=== PATIENT | male | born 1945 | race Caucasian/White ===

== ENCOUNTER 2019-11-05 10:31 | Outpatient (CLI) | payer OTHER, SELFPAY ==
[2019-11-05 10:42] LABS: Basophils Absolute Auto 0.08 K/mm3 (0.00-0.10); Basophils Percent Auto 1.4 % (0.0-1.0); Eosinophils Absolute Auto 0.22 K/mm3 (0.02-0.50); Eosinophils Percent Auto 3.7 % (1.0-6.0); Hematocrit 43.9 % (37.0-46.0); Hemoglobin 13.9 g/dL (12.4-15.3); Immature Granulocyte Absolute 0.02 K/mm3 (0.00-0.00); Immature Granulocyte Percent A 0.3 % (0.0-0.0); Lymphocytes Absolute Auto 1.14 K/mm3 (1.10-4.50); Lymphocytes Percent Auto 19.4 % (18.0-42.0); Mean Corpuscular HGB Conc 31.7 g/dL (32.0-36.0); Mean Corpuscular Hemoglobin 26.2 pg (27.0-31.0); Mean Corpuscular Volume 82.8 fL (78.0-102.0); Mean Platelet Volume 9.6 fl (8.7-11.0); Monocytes Absolute Auto 0.43 K/mm3 (0.10-0.90); Monocytes Percent Auto 7.3 % (2.0-11.0); Neutrophils Percent Auto 67.9 % (50.0-70.0); Platelet Count Result 317 K/mm3 (150-420); Red Cell Distribution Width 20.7 % (11.6-14.4); White Blood Count 5.9 K/mm3 (4.8-10.8)
[2019-11-05 10:57] LABS: Add Urine Microscopic? YES; Appearance Urine Clear (Clear); Bilirubin Urine Negative (Negative); Blood Urine Negative (Negative); Color Urine Amber (Yellow); Glucose Urine UA Negative (Negative); Ketones Urine Trace (Negative); Leukocyte Esterase Ur Negative LEU/UL (Negative); Nitrate Urine Negative (Negative); Protein Urine Trace (Negative)
[2019-11-05 11:03] LABS: Bacteria Urine Trace /hpf; Mucus Urine Moderate /lpf; RBC Urine None seen /hpf (0-2); Renal Epithelial Cells Urine Rare /hpf; Squamous Epithelial Cell Urine Rare /hpf (Few); WBC Urine None seen /hpf (0-3)
[2019-11-05 11:34] LABS: Alanine Aminotransferase 25 U/L (16-63); Albumin Level 3.8 g/dL (3.4-5.0); Alkaline Phosphatase 72 U/L (46-116); Anion Gap 13.4 mmol/L (7-16); Aspartate Amino Transferase 25 U/L (15-37); Bilirubin,Total 0.4 mg/dL (0.00-1.00); Blood Urea Nitrogen 21 mg/dL (7-18); Calcium 8.8 mg/dL (8.5-10.1); Carbon Dioxide 28 mmol/L (21-32); Chloride 105 mmol/L (98-108); Cholesterol 198 mg/dL (0-200); Creatine Kinase 118 U/L (39-308); Estimated Glomerular Filt Rate > 60; Glucose 89 mg/dL (70-99); HDL Direct 71 mg/dL (40-60); LDL Cholesterol Calculated 101 mg/dL (<130); Osmolality Calculated 296 mOsm/kg (285-295); Potassium 4.4 mmol/L (3.5-5.1); Sodium 142 mmol/L (136-145); Total Protein 6.6 g/dL (6.4-8.2); Triglycerides 130 mg/dL (0-150)
== END 2019-11-05 10:32 | disposition home or self-care (01) ==
PROVIDERS: PCP Internal Medicine; Visit Provider Internal Medicine
DX: E78.5 Hyperlipidemia, unspecified (principal); I10 Essential (primary) hypertension; D45 Polycythemia vera
CPT/HCPCS: 36415; 80053; 80061; 81001; 82550; 85025

== ENCOUNTER 2020-04-30 07:25 | Outpatient (CLI) | payer OTHER, SELFPAY ==
[2020-04-30 07:38] LABS: Add Urine Microscopic? YES; Appearance Urine Clear (Clear); Basophils Absolute Auto 0.05 K/mm3 (0.00-0.10); Bilirubin Urine Negative (Negative); Blood Urine Negative (Negative); Color Urine Yellow (Yellow); Eosinophils Absolute Auto 0.23 K/mm3 (0.02-0.50); Eosinophils Percent Auto 4.8 % (1.0-6.0); Glucose Urine UA Negative (Negative); Hematocrit 45.3 % (37.0-46.0); Hemoglobin 14.3 g/dL (12.4-15.3); Immature Granulocyte Absolute 0.02 K/mm3 (0.00-0.00); Immature Granulocyte Percent A 0.4 % (0.0-0.0); Ketones Urine Trace (Negative); Leukocyte Esterase Ur Negative (Negative); Lymphocytes Absolute Auto 0.89 K/mm3 (1.10-4.50); Lymphocytes Percent Auto 18.7 % (18.0-42.0); Mean Corpuscular HGB Conc 31.6 g/dL (32.0-36.0); Mean Corpuscular Hemoglobin 29.1 pg (27.0-31.0); Mean Corpuscular Volume 92.1 fL (78.0-102.0); Mean Platelet Volume 9.2 fl (8.7-11.0); Monocytes Absolute Auto 0.41 K/mm3 (0.10-0.90); Monocytes Percent Auto 8.6 % (2.0-11.0); Neutrophils Absolute Auto 3.2 K/mm3 (1.7-7.2); Neutrophils Percent Auto 66.5 % (50.0-70.0); Nitrate Urine Negative (Negative); Platelet Count Result 381 K/mm3 (150-420); Protein Urine Negative (Negative); Red Blood Count 4.92 M/mm3 (4.70-6.10); Red Cell Distribution Width 13.3 % (11.6-14.4); Specific Grav Ur 1.015 (1.010-1.020); Urobilinogen Urine 0.2 mg/dL (0.2-1.0); White Blood Count 4.8 K/mm3 (4.8-10.8)
[2020-04-30 07:43] LABS: RBC Urine 0-2 /hpf (0-2); Squamous Epithelial Cell Urine None seen /hpf (Few); WBC Urine 0-3 /hpf (0-3)
[2020-04-30 07:44] LABS: Bacteria Urine Trace /hpf; Mucus Urine Heavy /lpf
[2020-04-30 08:36] LABS: Alanine Aminotransferase 19 U/L (16-63); Alkaline Phosphatase 62 U/L (46-116); Anion Gap 7 mmol/L (8-16); Aspartate Amino Transferase 14 U/L (15-37); Bilirubin,Total 0.6 mg/dL (0.00-1.00); Blood Urea Nitrogen 15 mg/dL (7-18); Calcium 9.1 mg/dL (8.5-10.1); Carbon Dioxide 30 mmol/L (21-32); Chloride 107 mmol/L (98-108); Cholesterol 212 mg/dL (0-200); Creatine Kinase 74 U/L (39-308); Estimated Glomerular Filt Rate > 60; Ferritin 10 ng/mL (26-388); Glucose 85 mg/dL (70-99); HDL Direct 61 mg/dL (40-60); Iron 90 ug/dL (65-175); LDL Cholesterol Calculated 122 mg/dL (<130); Osmolality Calculated 297 mOsm/kg (285-295); Percent Iron Saturation 21 % (12-57); Potassium 4.7 mmol/L (3.5-5.1); Sodium 144 mmol/L (136-145); Triglycerides 144 mg/dL (0-150)
== END 2020-04-30 07:26 | disposition home or self-care (01) ==
LOC: CHSLAB 07:27
PROVIDERS: PCP Internal Medicine; Visit Provider Internal Medicine
DX: E78.2 Mixed hyperlipidemia (principal); I10 Essential (primary) hypertension; K21.9 Gastro-esophageal reflux disease without esophagitis; D45 Polycythemia vera
CPT/HCPCS: 36415; 80053; 80061; 81001; 82550; 82728; 83540; 83550; 85025

== ENCOUNTER 2020-05-19 12:49 | Outpatient (CLI) | payer OTHER, SELFPAY ==
[2020-05-19 13:08] LABS: Basophils Absolute Auto 0.1 K/mm3 (0.0-0.1); Basophils Percent Auto 0.8 % (0.2-1.2); Eosinophils Absolute Auto 0.2 K/mm3 (0-0.3); Eosinophils Percent Auto 3.5 % (0-4.4); Hematocrit 46.8 % (42.0-52.0); Hemoglobin 14.7 g/dL (14.0-18.0); Immature Granulocyte Absolute 0.02 K/mm3 (0.00-0.031); Immature Granulocyte Percent A 0.3 % (0-0.5); Lymphocytes Absolute Auto 1.24 K/mm3 (0.9-3.2); Lymphocytes Percent Auto 19.7 % (18.3-44.2); Mean Corpuscular HGB Conc 31.4 g/dl (32-36); Mean Corpuscular Hemoglobin 28.1 pg (26-34); Mean Corpuscular Volume 89.5 fl (80-100); Mean Platelet Volume 9.7 fl (7.4-10.4); Monocytes Absolute Auto 0.5 K/mm3 (0.1-0.6); Monocytes Percent Auto 7.2 % (2.6-8.5); Neutrophils Absolute Auto 4.3 K/mm3 (1.3-6.7); Neutrophils Percent Auto 68.5 % (45.5-73.1); Platelet Count Result 311 k/mm3 (150-375); Red Blood Count 5.23 M/mm3 (4.6-6.20); Red Cell Distribution Width 13.5 % (11.5-14.5); White Blood Count 6.3 K/mm3 (4.5-10.0)
[2020-05-19 13:11] LABS: Blood Urea Nitrogen 19 mg/dL (8-26); Carbon Dioxide 31 mmol/L (22-30); Chloride 101 mmol/L (98-109); Estimated Glomerular Filt Rate > 60; Glucose 88 mg/dL (70-105); Sodium 141 mmol/L (138-146)
[2020-05-19 17:18] LABS: Alanine Aminotransferase 21 U/L (4-50); Albumin Level 4.7 g/dL (3.5-5.1); Alkaline Phosphatase 68 U/L (38-126); Anion Gap 11 mmol/L (8-16); Aspartate Amino Transferase 36 U/L (17-59); Bilirubin,Total 0.7 mg/dL (0.2-1.3); Blood Urea Nitrogen 18 mg/dL (9-20); Calcium 9.9 mg/dL (8.4-10.2); Carbon Dioxide 31 mmol/L (22-30); Chloride 99 mmol/L (98-107); Estimated Glomerular Filt Rate > 60; Glucose 92 mg/dL (75-110); Potassium 4.3 mmol/L (3.4-5.0); Sodium 141 mmol/L (137-145)
== END 2020-05-19 12:50 | disposition home or self-care (01) ==
LOC: ANHLAB 12:51
PROVIDERS: PCP Internal Medicine; Visit Provider Internal Medicine Hematology & Oncology
DX: D45 Polycythemia vera (principal)
CPT/HCPCS: 36415; 80048; 80053; 85025

== ENCOUNTER 2020-10-27 07:16 | Outpatient (CLI) | payer OTHER, SELFPAY ==
[2020-10-27 07:28] LABS: Appearance Urine Clear (Clear); Basophils Absolute Auto 0.07 K/mm3 (0.00-0.10); Basophils Percent Auto 1.5 % (0.0-1.0); Bilirubin Urine Negative (Negative); Blood Urine Negative (Negative); Eosinophils Absolute Auto 0.19 K/mm3 (0.02-0.50); Eosinophils Percent Auto 4.1 % (1.0-6.0); Glucose Urine UA Negative (Negative); Hematocrit 42.2 % (37.0-46.0); Hemoglobin 13.3 g/dL (12.4-15.3); Immature Granulocyte Absolute 0.01 K/mm3 (0.00-0.00); Immature Granulocyte Percent A 0.2 % (0.0-0.0); Ketones Urine Trace (Negative); Leukocyte Esterase Ur Negative (Negative); Lymphocytes Absolute Auto 0.77 K/mm3 (1.10-4.50); Lymphocytes Percent Auto 16.6 % (18.0-42.0); Mean Corpuscular HGB Conc 31.5 g/dL (32.0-36.0); Mean Corpuscular Hemoglobin 25.2 pg (27.0-31.0); Mean Corpuscular Volume 80.1 fL (78.0-102.0); Mean Platelet Volume 9.1 fl (8.7-11.0); Monocytes Percent Auto 8.6 % (2.0-11.0); Neutrophils Absolute Auto 3.2 K/mm3 (1.7-7.2); Nitrate Urine Negative (Negative); Platelet Count Result 400 K/mm3 (150-420); Protein Urine Negative (Negative); Red Blood Count 5.27 M/mm3 (4.70-6.10); Red Cell Distribution Width 16.6 % (11.6-14.4); Urobilinogen Urine 0.2 mg/dL (0.2-1.0); White Blood Count 4.6 K/mm3 (4.8-10.8); pH Urine 5.5 (5.0-8.0)
[2020-10-27 07:41] LABS: Add Urine Microscopic? YES; Color Urine Dark Orange (Yellow)
[2020-10-27 07:42] LABS: Bacteria Urine Trace /hpf; Mucus Urine Few /lpf; RBC Urine None seen /hpf (0-2); WBC Urine None seen /hpf (0-3)
[2020-10-27 08:20] LABS: Alanine Aminotransferase 24 U/L (16-63); Albumin Level 4.1 g/dL (3.4-5.0); Alkaline Phosphatase 68 U/L (46-116); Anion Gap 11 mmol/L (8-16); Aspartate Amino Transferase 17 U/L (15-37); Bilirubin,Total 0.7 mg/dL (0.00-1.00); Blood Urea Nitrogen 24 mg/dL (7-18); Calcium 8.9 mg/dL (8.5-10.1); Carbon Dioxide 27 mmol/L (21-32); Chloride 104 mmol/L (98-108); Cholesterol 183 mg/dL (0-200); Creatine Kinase 112 U/L (39-308); Estimated Glomerular Filt Rate 52; Ferritin 12 ng/mL (26-388); Glucose 93 mg/dL (70-99); HDL Direct 61 mg/dL (40-60); Iron 45 ug/dL (65-175); LDL Cholesterol Calculated 100 mg/dL (<130); Osmolality Calculated 298 mOsm/kg (285-295); Percent Iron Saturation 10 % (12-57); Potassium 4.7 mmol/L (3.5-5.1); Sodium 142 mmol/L (136-145); Triglycerides 111 mg/dL (0-150)
== END 2020-10-27 07:17 | disposition home or self-care (01) ==
LOC: CHSLAB 07:18
PROVIDERS: PCP Internal Medicine; Visit Provider Internal Medicine
DX: K21.9 Gastro-esophageal reflux disease without esophagitis (principal); I10 Essential (primary) hypertension; E78.2 Mixed hyperlipidemia; D45 Polycythemia vera
CPT/HCPCS: 36415; 80053; 80061; 81001; 82550; 82728; 83540; 83550; 85025

== ENCOUNTER 2020-12-03 07:27 | Outpatient (CLI) | payer OTHER, SELFPAY ==
[2020-12-03 09:13] LABS: Alanine Aminotransferase 27 U/L (16-63); Albumin Level 3.8 g/dL (3.4-5.0); Alkaline Phosphatase 76 U/L (46-116); Anion Gap 11 mmol/L (8-16); Aspartate Amino Transferase 20 U/L (15-37); Bilirubin,Total 0.4 mg/dL (0.00-1.00); Blood Urea Nitrogen 19 mg/dL (7-18); Calcium 9.2 mg/dL (8.5-10.1); Carbon Dioxide 27 mmol/L (21-32); Chloride 106 mmol/L (98-108); Estimated Glomerular Filt Rate > 60; Glucose 79 mg/dL (70-99); Osmolality Calculated 299 mOsm/kg (285-295); Sodium 144 mmol/L (136-145); Total Protein 6.8 g/dL (6.4-8.2)
== END 2020-12-03 07:28 | disposition home or self-care (01) ==
LOC: CHSLAB 07:29
PROVIDERS: PCP Internal Medicine; Visit Provider Internal Medicine
DX: E86.0 Dehydration (principal)
CPT/HCPCS: 36415; 80053

== ENCOUNTER 2021-02-02 00:33 | Day surgery (SDC) | payer OTHER, SELFPAY ==
[2021-01-20 15:38] VITALS: BMI 26.9
[2021-02-02 08:32] VITALS: BP 152/80; PULSE 59; RESP 15; TEMP 36; O2SAT 98; BMI 26.9
[2021-02-02] MEDS: LACTATED RINGERS 1,000 ML 150 ML IV CONT (08:36)
--- NOTE | 2021-02-02 09:08 | WPDANESEPPF ---
Anes - Initial Pre Proc Eval Procedure: Operation Date: 02/02/21 10:00 Proposed Procedures p Screening Colonoscopy - Heath Castellanos MD Date/Time: 02/02/21 09:08 Surgeon: Heath Castellanos MD Pre Op Diagnosis: hx of colon polyps Z86.010 Patient Data Age: 75 Gender: M Height: 1.88 m Weight: 95.1 kg Last Vital Signs Temp 96.8 F L 02/02/21 08:32 Pulse 59 L 02/02/21 08:32 Resp 15 02/02/21 08:32 BP 152/80 H 02/02/21 08:32 Pulse Ox 98 02/02/21 08:32 Allergies Allergy/AdvReac Type Severity Reaction Status Date / Time No Known Allergies Allergy Verified 02/02/21 08:30 Home Medications Medication Instructions Recorded Confirmed Type losartan 25 mg PO DAILY 07/17/19 02/02/21 History pravastatin 10 mg PO DAILY 07/17/19 02/02/21 History acetaminophen [Acetaminophen Extra 500 mg PO QID PRN 07/31/19 02/02/21 History Strength] aspirin [Aspir-81] 81 mg PO DAILY 07/31/19 02/02/21 History cetirizine [Zyrtec] 10 mg PO DAILY 07/31/19 02/02/21 History docosahexaenoic acid-epa [Fish Oil] 2 cap PO DAILY 07/31/19 02/02/21 History garlic 2,000 mg PO DAILY 07/31/19 02/02/21 History glucosamine-chondroitin [Osteo 2 tablet PO BID 07/31/19 02/02/21 History Bi-Flex] hwuabaofnuho-yydg-bftga acid 1 tablet PO DAILY 07/31/19 02/02/21 History [Centrum Complete] omeprazole-sodium bicarbonate 1 cap PO DAILY 07/31/19 02/02/21 History [Zegerid] saw palmetto 1,000 mg PO BID 07/31/19 02/02/21 History tramadol 50 mg PO Q8H PRN 07/31/19 02/02/21 History vit A,C and N-eknbco-nrtizmju 1 tablet PO DAILY 07/31/19 02/02/21 History [Ocuvite with Lutein] hydroxyurea 500 mg PO EVERY OTHER DAY 01/20/21 02/02/21 History Patient hx anesthesia problems: none Family hx anesthesia problems: none PMF Social History Social History Smoking packs per day: 1 Smoking cigarettes per day: 20.0 Years smoked: 20 Smoking pack-years: 20.00 Smoking status: Former smoker Tobacco type: cigarettes Smoking end date: 07/17/19 Alcohol intake: current Alcohol use details: 2x monthly Living arrangements: alone Gender identity (if verbalized by the patient): Male Spiritual care concerns: No Anes - Eval Final PreProcedure Day of Procedure 02/02/21 09:08 Patient weight: overweight Heart: regular rate and rhythm Lungs: clear to auscultation Airway: Mallampati scale class II Neurological: alert and oriented Last oral intake: >/= 8 hours ASA classification: III Emergent: no Anesthetic plan: proceed Anesthesia type and monitoring: general GIVS and standard monitoring Informed Consent: The patient's anesthetic plan and its attendant risks and benefits were discussed with the patient/family/POA. Questions were solicited and answers provided to the satisfaction of the patient/family/POA.
--- NOTE | 2021-02-02 09:45 | PM.HPGS ---
History of Present Illness History of Present Illness Consent: Risks, benefits, and alternatives have been discussed and questions answered. Patient agrees to proceed with procedure. Chief complaint: hx of colon polyps Z86.010 Narrative: Tino Carroll Jr. is a 75 year old male with last colonoscopy 2010 Review of Systems Constitutional: Constitutional: Denies headache(s) and Denies weakness Eyes: Eyes: Denies blurry vision ENT: Reports Normal hearing present, Denies headache(s) and Denies neck pain Cardiovascular: Cardiovascular: Denies chest pain and Denies dyspnea Respiratory: Respiratory: Denies dyspnea Gastrointestinal: Gastrointestinal: Reports no additional gastrointestinal complaints Genitourinary: Genitourinary: Denies dysuria Musculoskeletal: Musculoskeletal: Denies neck pain Integumentary/Breasts: Skin/Breast: Denies dry skin Neurologic: Reports Normal hearing present, Denies headache(s) and Denies weakness Psychiatric: Psychiatric: Denies anxiety Endocrine: Endocrine: Denies change in body appearance Hematologic/Lymphatic: Hematologic/Lymphatic: Denies easy bleeding Allergic/Immunologic: Allergic/Immunologic: Denies urticaria PMF Past Medical History Medical History (Updated 02/02/21 @ 09:45 by Heath Castellanos MD) Colon cancer screening Social History Social History Smoking packs per day: 1 Smoking cigarettes per day: 20.0 Years smoked: 20 Smoking pack-years: 20.00 Smoking status: Former smoker Tobacco type: cigarettes Smoking end date: 07/17/19 Alcohol intake: current Alcohol use details: 2x monthly Living arrangements: alone Gender identity (if verbalized by the patient): Male Spiritual care concerns: No Meds Home Medications and Allergies Home Medications Medication Instructions Recorded Confirmed Type losartan 25 mg PO DAILY 07/17/19 02/02/21 History pravastatin 10 mg PO DAILY 07/17/19 02/02/21 History acetaminophen [Acetaminophen Extra 500 mg PO QID PRN 07/31/19 02/02/21 History Strength] aspirin [Aspir-81] 81 mg PO DAILY 07/31/19 02/02/21 History cetirizine [Zyrtec] 10 mg PO DAILY 07/31/19 02/02/21 History docosahexaenoic acid-epa [Fish Oil] 2 cap PO DAILY 07/31/19 02/02/21 History garlic 2,000 mg PO DAILY 07/31/19 02/02/21 History glucosamine-chondroitin [Osteo 2 tablet PO BID 07/31/19 02/02/21 History Bi-Flex] awijsqnisjmv-eofw-rxiiw acid 1 tablet PO DAILY 07/31/19 02/02/21 History [Centrum Complete] omeprazole-sodium bicarbonate 1 cap PO DAILY 07/31/19 02/02/21 History [Zegerid] saw palmetto 1,000 mg PO BID 07/31/19 02/02/21 History tramadol 50 mg PO Q8H PRN 07/31/19 02/02/21 History vit A,C and V-wlhtix-uhwytfzc 1 tablet PO DAILY 07/31/19 02/02/21 History [Ocuvite with Lutein] hydroxyurea 500 mg PO EVERY OTHER DAY 01/20/21 02/02/21 History Allergies Allergy/AdvReac Type Severity Reaction Status Date / Time No Known Allergies Allergy Verified 02/02/21 08:30 Vital Signs Vital Signs - 24 hr 02/02/21 08:32 Temperature 96.8 F L Pulse Rate 59 L Respiratory Rate 15 Blood Pressure 152/80 H Pulse Oximetry 98 Exam Const: General: comfortable and no acute distress HENMT: General nose exam: Normal nares present Eyes: General: appearance normal, both eyes and all related structures Neck: Neck: no JVD Resp: Auscultation: clear to auscultation bilaterally Cardio: Rate: regular rate Rhythm: regular rhythm GI: Inspection: non-distended GI Palp: Yes Soft to palpation Skin: General skin exam: normal color Neuro: General: gait normal Speech: normal speech Extrem: General: normal to inspection Psych: Mental Status: mental status grossly normal Assessment and Plan Assessment and plan (1) Colon cancer screening: Code(s): Z12.11 - Encounter for screening for malignant neoplasm of colon Status: Acute Assessment and Plan: colonoscopy
[2021-02-02 10:14] VITALS: BP 118/75; PULSE 54; RESP 19; O2SAT 98
[2021-02-02 10:24] VITALS: BP 121/82; PULSE 52; RESP 19; O2SAT 99
[2021-02-02 10:34] VITALS: BP 135/70; PULSE 52; RESP 19; O2SAT 99
== END 2021-02-02 10:37 | disposition home or self-care (01) ==
PROVIDERS: PCP Internal Medicine; Visit Provider Internal Medicine Gastroenterology
PROC: 0DJD8ZZ Inspection of Lower Intestinal Tract, Via Natural or Artificial Opening Endoscopic (ICD-10-PCS; CPT 45378; principal; 2021-02-02 10:00)
DX: Z12.11 Encounter for screening for malignant neoplasm of colon (principal); K64.8 Other hemorrhoids; Z86.010 Personal history of colon polyps; Z87.891 Personal history of nicotine dependence; Z79.82 Long term (current) use of aspirin
CPT/HCPCS: 45378; J2704; J7120

== ENCOUNTER 2021-04-28 07:09 | Outpatient (CLI) | payer OTHER, SELFPAY ==
[2021-04-28 07:26] LABS: Add Urine Microscopic? NO; Appearance Urine Clear (Clear); Bilirubin Urine Negative (Negative); Blood Urine Negative (Negative); Color Urine Yellow (Yellow); Glucose Urine UA Negative (Negative); Ketones Urine Negative (Negative); Leukocyte Esterase Ur Negative LEU/UL (Negative); Nitrate Urine Negative (Negative); Protein Urine Negative (Negative); Urobilinogen Urine 0.2 mg/dL (0.2-1.0)
[2021-04-28 08:26] LABS: Alanine Aminotransferase 19 U/L (16-63); Albumin Level 3.9 g/dL (3.4-5.0); Alkaline Phosphatase 73 U/L (46-116); Anion Gap 10 mmol/L (8-16); Aspartate Amino Transferase 14 U/L (15-37); Bilirubin,Total 0.6 mg/dL (0.00-1.00); Blood Urea Nitrogen 17 mg/dL (7-18); Calcium 8.6 mg/dL (8.5-10.1); Carbon Dioxide 29 mmol/L (21-32); Chloride 106 mmol/L (98-108); Cholesterol 178 mg/dL (0-200); Creatine Kinase 71 U/L (39-308); Estimated Glomerular Filt Rate > 60; Glucose 89 mg/dL (70-99); HDL Direct 65 mg/dL (40-60); LDL Cholesterol Calculated 92 mg/dL (<130); Osmolality Calculated 300 mOsm/kg (285-295); Potassium 4.9 mmol/L (3.5-5.1); Prostate Specific Antigen 1.7 ng/mL (< OR = 4.0); Sodium 145 mmol/L (136-145); Triglycerides 105 mg/dL (0-150)
== END 2021-04-28 07:10 | disposition home or self-care (01) ==
LOC: CHSLAB 07:12
PROVIDERS: PCP Internal Medicine; Visit Provider Internal Medicine
DX: E78.5 Hyperlipidemia, unspecified (principal); I10 Essential (primary) hypertension; D45 Polycythemia vera; N39.0 Urinary tract infection, site not specified; Z12.5 Encounter for screening for malignant neoplasm of prostate
CPT/HCPCS: 36415; 80053; 80061; 81003; 82550; 84153; G0103

== ENCOUNTER 2021-05-06 16:06 | Outpatient (CLI) | payer OTHER, SELFPAY ==
[2021-05-06 16:29] LABS: Basophils Absolute Auto 0.07 K/mm3 (0.00-0.10); Basophils Percent Auto 1.2 % (0.0-1.0); Eosinophils Absolute Auto 0.26 K/mm3 (0.02-0.50); Eosinophils Percent Auto 4.3 % (1.0-6.0); Hematocrit 45.1 % (37.0-46.0); Hemoglobin 13.3 g/dL (12.4-15.3); Immature Granulocyte Absolute 0.02 K/mm3 (0.00-0.00); Immature Granulocyte Percent A 0.3 % (0.0-0.0); Lymphocytes Percent Auto 18.3 % (18.0-42.0); Mean Corpuscular HGB Conc 29.5 g/dL (32.0-36.0); Mean Corpuscular Hemoglobin 23.9 pg (27.0-31.0); Mean Platelet Volume 9.5 fl (8.7-11.0); Monocytes Absolute Auto 0.39 K/mm3 (0.10-0.90); Monocytes Percent Auto 6.5 % (2.0-11.0); Neutrophils Absolute Auto 4.2 K/mm3 (1.7-7.2); Neutrophils Percent Auto 69.4 % (50.0-70.0); Platelet Count Result 493 K/mm3 (150-420); Red Blood Count 5.57 M/mm3 (4.70-6.10); Red Cell Distribution Width 16.3 % (11.6-14.4)
[2021-05-06 17:12] LABS: Free T3 2.16 pg/mL (2.18-3.98); Free T4 Free Thyroxine 0.76 ng/dL (0.76-1.46); Lactate Dehydrogenase 189 U/L (85-227)
[2021-05-12 05:08] LABS: Thyroid Peroxidase Antibodies 57 IU/mL (<9)
[2021-05-12 21:22] LABS: Thyroxin Binding Globulin 40.8 mcg/mL (12.7-25.1)
== END 2021-05-06 16:07 | disposition home or self-care (01) ==
LOC: CHSLAB 16:08
PROVIDERS: PCP Internal Medicine; Visit Provider Internal Medicine
DX: D45 Polycythemia vera (principal); R53.82 Chronic fatigue, unspecified; E03.9 Hypothyroidism, unspecified
CPT/HCPCS: 36415; 83615; 84439; 84442; 84443; 84481; 85025; 86376

== ENCOUNTER 2021-05-13 11:49 | Outpatient (CLI) | payer OTHER, SELFPAY ==
--- NOTE | ~2021-05-13 | US_ITS ---
US thyroid INDICATION: Hypothyroidism TECHNIQUE: Real-time sonographic images of the thyroid gland were obtained. COMPARISON: No prior studies for comparison. FINDINGS: The right thyroid lobe measures 4.8 x 1.8 x 1.3 cm. The left thyroid lobe measures 4.4 x 1 .7 x 1.1 cm. There is normal echotexture and echogenicity throughout the thyroid gland. No discrete n odules identified. Normal vascular flow is present. IMPRESSION: 1. Normal thyroid without discrete nodule or abnormal vascularity. Reviewed, dictated and finalized at location A. [employer]
== END 2021-05-13 11:50 | disposition home or self-care (01) ==
LOC: CHSIMG 11:50
PROVIDERS: PCP Internal Medicine; Visit Provider Internal Medicine
DX: E03.9 Hypothyroidism, unspecified (principal)
CPT/HCPCS: 76536

== ENCOUNTER 2021-07-22 07:20 | Outpatient (CLI) | payer OTHER, SELFPAY ==
[2021-07-22 11:17] LABS: Free T3 2.53 pg/mL (2.18-3.98); Thyroid Stimulating Hormone 5.25 uIU/mL (0.36-3.74)
== END 2021-07-22 07:21 | disposition home or self-care (01) ==
LOC: CHSLAB 07:22
PROVIDERS: PCP Internal Medicine; Visit Provider Internal Medicine
DX: E06.3 Autoimmune thyroiditis (principal)
CPT/HCPCS: 36415; 84439; 84443; 84481

== ENCOUNTER 2021-09-14 07:22 | Outpatient (CLI) | payer OTHER, SELFPAY ==
[2021-09-14 08:15] LABS: Free T3 2.75 pg/mL (2.18-3.98); Free T4 Free Thyroxine 0.97 ng/dL (0.76-1.46); Thyroid Stimulating Hormone 4.34 uIU/mL (0.36-3.74)
== END 2021-09-14 07:23 | disposition home or self-care (01) ==
LOC: CHSLAB 07:24
PROVIDERS: PCP Internal Medicine; Visit Provider Internal Medicine
DX: E06.3 Autoimmune thyroiditis (principal)
CPT/HCPCS: 36415; 84439; 84443; 84481

== ENCOUNTER 2021-11-04 07:04 | Outpatient (CLI) | payer OTHER, SELFPAY ==
[2021-11-04 07:16] LABS: Add Urine Microscopic? NO; Appearance Urine Clear (Clear); Basophils Absolute Auto 0.07 K/mm3 (0.00-0.10); Basophils Percent Auto 1.4 % (0.0-1.0); Bilirubin Urine Negative (Negative); Blood Urine Negative (Negative); Color Urine Yellow (Yellow); Eosinophils Absolute Auto 0.27 K/mm3 (0.02-0.50); Eosinophils Percent Auto 5.3 % (1.0-6.0); Glucose Urine UA Negative (Negative); Hematocrit 42.1 % (37.0-46.0); Hemoglobin 12.8 g/dL (12.4-15.3); Immature Granulocyte Absolute 0.01 K/mm3 (0.00-0.00); Immature Granulocyte Percent A 0.2 % (0.0-0.0); Ketones Urine Negative (Negative); Leukocyte Esterase Ur Negative LEU/UL (Negative); Lymphocytes Absolute Auto 0.68 K/mm3 (1.10-4.50); Lymphocytes Percent Auto 13.2 % (18.0-42.0); Mean Corpuscular HGB Conc 30.4 g/dL (32.0-36.0); Mean Corpuscular Hemoglobin 24.7 pg (27.0-31.0); Mean Corpuscular Volume 81.3 fL (78.0-102.0); Mean Platelet Volume 9.6 fl (8.7-11.0); Monocytes Absolute Auto 0.37 K/mm3 (0.10-0.90); Monocytes Percent Auto 7.2 % (2.0-11.0); Neutrophils Absolute Auto 3.7 K/mm3 (1.7-7.2); Neutrophils Percent Auto 72.7 % (50.0-70.0); Nitrate Urine Negative (Negative); Platelet Count Result 611 K/mm3 (150-420); Protein Urine Negative (Negative); Red Blood Count 5.18 M/mm3 (4.70-6.10); Red Cell Distribution Width 19.1 % (11.6-14.4); Urobilinogen Urine 0.2 mg/dL (0.2-1.0); White Blood Count 5.1 K/mm3 (4.8-10.8)
[2021-11-04 07:47] LABS: Alanine Aminotransferase 15 U/L (16-63); Albumin Level 3.9 g/dL (3.4-5.0); Alkaline Phosphatase 66 U/L (46-116); Anion Gap 7 mmol/L (8-16); Aspartate Amino Transferase 17 U/L (15-37); Bilirubin,Total 0.6 mg/dL (0.00-1.00); Blood Urea Nitrogen 18 mg/dL (7-18); Carbon Dioxide 27 mmol/L (21-32); Chloride 106 mmol/L (98-108); Cholesterol 190 mg/dL (0-200); Estimated Glomerular Filt Rate > 60; Free T3 2.55 pg/mL (2.18-3.98); Free T4 Free Thyroxine 1.15 ng/dL (0.76-1.46); Glucose 93 mg/dL (70-99); HDL Direct 62 mg/dL (40-60); LDL Cholesterol Calculated 99 mg/dL (<130); Osmolality Calculated 291 mOsm/kg (285-295); Potassium 4.3 mmol/L (3.5-5.1); Sodium 140 mmol/L (136-145); Total Protein 7.1 g/dL (6.4-8.2); Triglycerides 145 mg/dL (0-150)
== END 2021-11-04 07:05 | disposition home or self-care (01) ==
LOC: CHSLAB 07:06
PROVIDERS: PCP Internal Medicine; Visit Provider Internal Medicine
DX: E78.5 Hyperlipidemia, unspecified (principal); I10 Essential (primary) hypertension; D45 Polycythemia vera; N39.0 Urinary tract infection, site not specified; E03.9 Hypothyroidism, unspecified
CPT/HCPCS: 36415; 80053; 80061; 81003; 84439; 84443; 84481; 85025

== ENCOUNTER 2022-01-11 01:10 | Day surgery (SDC) | payer OTHER, SELFPAY ==
[2021-12-23 09:19] VITALS: BMI 27.0
[2022-01-11 06:10] VITALS: BP 163/79; PULSE 66; RESP 18; TEMP 36.5; O2SAT 97; BMI 26.7
[2022-01-11] MEDS: LACTATED RINGERS 1,000 ML 150 ML IV CONT (06:28)
--- NOTE | 2022-01-11 07:22 | PM.HPGS ---
History of Present Illness History of Present Illness Consent: Risks, benefits, and alternatives have been discussed and questions answered. Patient agrees to proceed with procedure. Chief complaint: DANAY, GERD Narrative: Tino Carroll Jr. 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 He had EGDx2 with capsule endoscopy [place] [address] Cabral- apparently no major findings only small HH, also had colonoscopy. Recently I performed another colonoscopy that was unremarkable, only small hemorrhoids. Here for EGD and SBCE Review of Systems Constitutional: Constitutional: Denies headache(s) and Denies weakness Eyes: Eyes: Denies blurry vision ENT: Reports Normal hearing present, Denies headache(s) and Denies neck pain Cardiovascular: Cardiovascular: Denies chest pain and Denies dyspnea Respiratory: Respiratory: Denies dyspnea Gastrointestinal: Gastrointestinal: Reports no additional gastrointestinal complaints Genitourinary: Genitourinary: Denies dysuria Musculoskeletal: Musculoskeletal: Denies neck pain Integumentary/Breasts: Skin/Breast: Denies dry skin Neurologic: Reports Normal hearing present, Denies headache(s) and Denies weakness Psychiatric: Psychiatric: Denies anxiety Endocrine: Endocrine: Denies change in body appearance Hematologic/Lymphatic: Hematologic/Lymphatic: Denies easy bleeding Allergic/Immunologic: Allergic/Immunologic: Denies urticaria PMFSH Past Medical History Medical History (Updated 11/30/21 @ 13:10 by Jonathon Love MD) Colon cancer screening GERD (gastroesophageal reflux disease) Social History Social History Smoking packs per day: 1 Smoking cigarettes per day: 20.0 Years smoked: 20 Smoking pack-years: 20.00 Smoking status: Former smoker Tobacco type: cigarettes Smoking end date: 07/17/19 Alcohol intake: current Alcohol use details: 2x monthly Substance use: never Substance use type: does not use Living arrangements: alone Gender identity (if verbalized by the patient): Male Spiritual care concerns: No Meds Home Medications and Allergies Home Medications Medication Instructions Recorded Confirmed Type losartan 25 mg tablet 25 mg PO DAILY 07/17/19 01/11/22 History pravastatin 10 mg tablet 10 mg PO DAILY 07/17/19 01/11/22 History acetaminophen 500 mg tablet 500 mg PO QID PRN Pain 07/31/19 01/11/22 History (Acetaminophen Extra Strength) cetirizine 10 mg capsule (Zyrtec) 10 mg PO DAILY 07/31/19 01/11/22 History docosahexaenoic acid (dha)-epa 120 2 cap PO DAILY 07/31/19 01/11/22 History mg-180 mg capsule (Fish Oil) garlic 1,000 mg capsule 2,000 mg PO DAILY 07/31/19 01/11/22 History glucosamine-chondroitin 250 mg-200 2 tablet PO BID 07/31/19 01/11/22 History mg tablet (Osteo Bi-Flex) multivitamin-ferrous 1 tablet PO DAILY 07/31/19 01/11/22 History fumarate-folic acid 18 mg-400 mcg tablet (Centrum Complete) omeprazole 40 mg-sodium 1 cap PO DAILY 07/31/19 01/11/22 History bicarbonate 1.1 gram capsule (Zegerid) saw palmetto 500 mg capsule 1,000 mg PO BID 07/31/19 01/11/22 History tramadol 50 mg tablet 50 mg PO Q8H PRN Pain 07/31/19 01/11/22 History vit A 300 mcg-C 200 mg-E 27 1 tablet PO DAILY 07/31/19 01/11/22 History mg-lutein 2 mg and minerals tablet (Ocuvite with Lutein) levothyroxine 75 mcg tablet 75 mcg PO DAILY 12/08/21 01/11/22 History Allergies Allergy/AdvReac Type Severity Reaction Status Date / Time No Known Allergies Allergy Verified 01/11/22 06:29 Vital Signs Vital Signs - 24 hr 01/11/22 06:10 Temperature 97.7 F Pulse Rate 66 Respiratory Rate 18 Blood Pressure 163/79 H Pulse Oximetry 97 Oxygen Delivery Room Air Exam Const: General: comfortable and no acute distress HENMT: General nose exam: Normal nares present Eyes: General: appearance normal, both eyes and
--- NOTE | 2022-01-11 07:33 | WPDANESEPPF ---
Anes - Initial Pre Proc Eval Procedure: Operation Date: 01/11/22 07:30 Proposed Procedures p Esophagogastroduodenoscopy With - Heath Castellanos MD s [facility] Capsule Endoscopy Deployment - Heath Castellanos MD Date/Time: 01/11/22 07:33 Surgeon: Heath Castellanos MD Pre Op Diagnosis: DANAY, GERD Patient Data Age: 76 Gender: M Height: 1.88 m Weight: 94.6 kg Last Vital Signs Temp 97.7 F 01/11/22 06:10 Pulse 66 01/11/22 06:10 Resp 18 01/11/22 06:10 BP 163/79 H 01/11/22 06:10 Pulse Ox 97 01/11/22 06:10 O2 Del Method Room Air 01/11/22 06:10 Allergies Allergy/AdvReac Type Severity Reaction Status Date / Time No Known Allergies Allergy Verified 01/11/22 06:29 Home Medications Medication Instructions Recorded Confirmed Type losartan 25 mg tablet 25 mg PO DAILY 07/17/19 01/11/22 History pravastatin 10 mg tablet 10 mg PO DAILY 07/17/19 01/11/22 History acetaminophen 500 mg tablet 500 mg PO QID PRN Pain 07/31/19 01/11/22 History (Acetaminophen Extra Strength) cetirizine 10 mg capsule (Zyrtec) 10 mg PO DAILY 07/31/19 01/11/22 History docosahexaenoic acid (dha)-epa 120 2 cap PO DAILY 07/31/19 01/11/22 History mg-180 mg capsule (Fish Oil) garlic 1,000 mg capsule 2,000 mg PO DAILY 07/31/19 01/11/22 History glucosamine-chondroitin 250 mg-200 2 tablet PO BID 07/31/19 01/11/22 History mg tablet (Osteo Bi-Flex) multivitamin-ferrous 1 tablet PO DAILY 07/31/19 01/11/22 History fumarate-folic acid 18 mg-400 mcg tablet (Centrum Complete) omeprazole 40 mg-sodium 1 cap PO DAILY 07/31/19 01/11/22 History bicarbonate 1.1 gram capsule (Zegerid) saw palmetto 500 mg capsule 1,000 mg PO BID 07/31/19 01/11/22 History tramadol 50 mg tablet 50 mg PO Q8H PRN Pain 07/31/19 01/11/22 History vit A 300 mcg-C 200 mg-E 27 1 tablet PO DAILY 07/31/19 01/11/22 History mg-lutein 2 mg and minerals tablet (Ocuvite with Lutein) levothyroxine 75 mcg tablet 75 mcg PO DAILY 12/08/21 01/11/22 History Patient hx anesthesia problems: none Family hx anesthesia problems: none Results Review: All pre-operative results and documents have been reviewed as part of the pre-operative evaluation. [facility] Past Medical History Medical History (Updated 11/30/21 @ 13:10 by Jonathon Love MD) Colon cancer screening GERD (gastroesophageal reflux disease) Social History Social History Smoking packs per day: 1 Smoking cigarettes per day: 20.0 Years smoked: 20 Smoking pack-years: 20.00 Smoking status: Former smoker Tobacco type: cigarettes Smoking end date: 07/17/19 Alcohol intake: current Alcohol use details: 2x monthly Substance use: never Substance use type: does not use Living arrangements: alone Gender identity (if verbalized by the patient): Male Spiritual care concerns: No Anes - Eval Final PreProcedure Day of Procedure 01/11/22 07:33 Patient weight: normal Heart: regular rate and rhythm Lungs: clear to auscultation Airway: Mallampati scale class II Neurological: alert and oriented Last oral intake: >/= 8 hours ASA classification: II Emergent: no Anesthetic plan: proceed Anesthesia type and monitoring: general GIVS and standard monitoring Results Review: All pre-operative results and documents have been reviewed as part of the pre-operative evaluation. Informed Consent: The patient's anesthetic plan and its attendant risks and benefits were discussed with the patient/family/POA. Questions were solicited and answers provided to the satisfaction of the patient/family/POA.
[2022-01-11 07:43] VITALS: BP 152/83; PULSE 55; RESP 21; O2SAT 100
[2022-01-11 07:53] VITALS: BP 133/79; PULSE 58; RESP 20; O2SAT 99
[2022-01-11 08:03] VITALS: BP 150/95; PULSE 58; RESP 29; O2SAT 100
--- NOTE | 2022-01-11 15:03 | SUR.PREOP ---
Patient returned to the GI Lab at 1500 for recorder box removal. Patient voiced no complaints. States they have understanding of instructions. Patient left ambulatory.
== END 2022-01-11 08:11 | disposition home or self-care (01) ==
PROVIDERS: PCP Internal Medicine; Visit Provider Internal Medicine Gastroenterology
PROC: 0DJ08ZZ Inspection of Upper Intestinal Tract, Via Natural or Artificial Opening Endoscopic (ICD-10-PCS; CPT 43235; principal; 2022-01-11 07:30)
PROC: 0DJ07ZZ Inspection of Upper Intestinal Tract, Via Natural or Artificial Opening (ICD-10-PCS; CPT 91110; 2022-01-11 07:30)
DX: D50.9 Iron deficiency anemia, unspecified (principal); K44.9 Diaphragmatic hernia without obstruction or gangrene; K25.9 Gastric ulcer, unspecified as acute or chronic, without hemorrhage or perforation; D45 Polycythemia vera; K29.80 Duodenitis without bleeding; K21.9 Gastro-esophageal reflux disease without esophagitis; Z87.891 Personal history of nicotine dependence; D64.9 Anemia, unspecified; E03.9 Hypothyroidism, unspecified
CPT/HCPCS: 43239; 88305; 91110; J2001; J2704; J7120

== ENCOUNTER 2022-05-19 07:04 | Outpatient (CLI) | payer OTHER, SELFPAY ==
[2022-05-19 07:20] LABS: Basophils Percent Auto 1.4 % (0.0-1.0); Eosinophils Absolute Auto 0.33 K/mm3 (0.02-0.50); Eosinophils Percent Auto 4.7 % (1.0-6.0); Hematocrit 60.9 % (37.0-46.0); Hemoglobin 19.5 g/dL (12.4-15.3); Immature Granulocyte Absolute 0.03 K/mm3 (0.00-0.00); Immature Granulocyte Percent A 0.4 % (0.0-0.0); Immature Platelet Fraction Pct 1.9 % (1.0-7.0); Lymphocytes Absolute Auto 0.66 K/mm3 (1.10-4.50); Lymphocytes Percent Auto 9.4 % (18.0-42.0); Mean Corpuscular Hemoglobin 28.1 pg (27.0-31.0); Mean Corpuscular Volume 87.9 fL (78.0-102.0); Mean Platelet Volume 8.9 fl (8.7-11.0); Monocytes Absolute Auto 0.45 K/mm3 (0.10-0.90); Monocytes Percent Auto 6.4 % (2.0-11.0); Neutrophils Absolute Auto 5.5 K/mm3 (1.7-7.2); Neutrophils Percent Auto 77.7 % (50.0-70.0); Platelet Count Result 597 K/mm3 (150-420); Red Blood Count 6.93 M/mm3 (4.70-6.10); Red Cell Distribution Width 22.7 % (11.6-14.4)
[2022-05-19 07:24] LABS: Add Urine Microscopic? YES; Appearance Urine Clear (Clear); Bilirubin Urine Negative (Negative); Blood Urine Negative (Negative); Color Urine Yellow (Yellow); Glucose Urine UA Negative (Negative); Ketones Urine Negative (Negative); Leukocyte Esterase Ur Trace (Negative); Nitrate Urine Negative (Negative); Protein Urine Trace (Negative); Specific Grav Ur 1.015 (1.010-1.020); Urobilinogen Urine 0.2 mg/dL (0.2-1.0)
[2022-05-19 07:30] LABS: Bacteria Urine Trace /hpf; Mucus Urine Few /lpf; RBC Urine None seen /hpf (0-2); WBC Urine 0-3 /hpf (0-3)
[2022-05-19 07:35] LABS: Creatinine Urine 166.62 mg/dL (40-278); MALB Creatinine Ratio 41.3 mg/g (0-30); Microalbumin Urine Random 68.9 mg/L
[2022-05-19 08:06] LABS: Alanine Aminotransferase 20 U/L (16-63); Albumin Level 4.2 g/dL (3.4-5.0); Alkaline Phosphatase 78 U/L (46-116); Anion Gap 6 mmol/L (8-16); Aspartate Amino Transferase 16 U/L (15-37); Bilirubin,Total 0.7 mg/dL (0.00-1.00); Blood Urea Nitrogen 17 mg/dL (7-18); Calcium 9.3 mg/dL (8.5-10.1); Carbon Dioxide 32 mmol/L (21-32); Chloride 105 mmol/L (98-108); Cholesterol 179 mg/dL (0-200); Creatine Kinase 52 U/L (39-308); Estimated Glomerular Filt Rate 53; Ferritin 31 ng/mL (26-388); Free T3 3.12 pg/mL (2.18-3.98); Free T4 Free Thyroxine 1.16 ng/dL (0.76-1.46); Glucose 88 mg/dL (70-99); HDL Direct 69 mg/dL (40-60); Iron 79 ug/dL (65-175); LDL Cholesterol Calculated 88 mg/dL (<130); Osmolality Calculated 296 mOsm/kg (285-295); Percent Iron Saturation 21 % (12-57); Potassium 5.4 mmol/L (3.5-5.1); Sodium 143 mmol/L (136-145); Total Protein 7.2 g/dL (6.4-8.2); Triglycerides 111 mg/dL (0-150)
[2022-05-22 18:08] LABS: Vitamin D 25 Hydroxy 59 ng/mL (30-100)
== END 2022-05-19 07:05 | disposition home or self-care (01) ==
LOC: CHSLAB 07:06
PROVIDERS: PCP Internal Medicine; Visit Provider Internal Medicine
DX: I10 Essential (primary) hypertension (principal); D45 Polycythemia vera; E06.3 Autoimmune thyroiditis; E78.2 Mixed hyperlipidemia; M81.0 Age-related osteoporosis without current pathological fracture
CPT/HCPCS: 36415; 80053; 80061; 81001; 82043; 82306; 82550; 82728; 83540; 83550; 84439; 84443; 84481; 85025; 85055

== ENCOUNTER 2022-06-27 10:05 | Outpatient (CLI) | payer OTHER, SELFPAY ==
[2022-06-27 10:41] LABS: Anion Gap 7 mmol/L (8-16); Blood Urea Nitrogen 18 mg/dL (7-18); Carbon Dioxide 29 mmol/L (21-32); Chloride 105 mmol/L (98-108); Estimated Glomerular Filt Rate > 60; Glucose 89 mg/dL (70-99); Osmolality Calculated 292 mOsm/kg (285-295); Potassium 4.9 mmol/L (3.5-5.1); Sodium 141 mmol/L (136-145)
== END 2022-06-27 10:06 | disposition home or self-care (01) ==
LOC: CHSLAB 10:08
PROVIDERS: PCP Internal Medicine; Visit Provider Internal Medicine
DX: E86.0 Dehydration (principal)
CPT/HCPCS: 36415; 80048

== ENCOUNTER 2022-11-15 07:00 | Outpatient (CLI) | payer OTHER, SELFPAY ==
[2022-11-15 07:13] LABS: Appearance Urine Clear (Clear); Bilirubin Urine 1+ (Negative); Blood Urine Negative (Negative); Glucose Urine UA Negative (Negative); Ketones Urine Trace (Negative); Leukocyte Esterase Ur Negative (Negative); Nitrate Urine Negative (Negative); Protein Urine 1+ (Negative); Specific Grav Ur 1.015 (1.010-1.020); pH Urine 6.5 (5.0-8.0)
[2022-11-15 07:15] LABS: Basophils Absolute Auto 0.08 K/mm3 (0.00-0.10); Basophils Percent Auto 1.4 % (0.0-1.0); Eosinophils Percent Auto 3.6 % (1.0-6.0); Hematocrit 58.7 % (37.0-46.0); Hemoglobin 18.8 g/dL (12.4-15.3); Immature Granulocyte Absolute 0.02 K/mm3 (0.00-0.00); Immature Granulocyte Percent A 0.4 % (0.0-0.0); Immature Platelet Fraction Pct 2.1 % (1.0-7.0); Lymphocytes Percent Auto 10.7 % (18.0-42.0); Mean Corpuscular Hemoglobin 30.4 pg (27.0-31.0); Mean Corpuscular Volume 94.8 fL (78.0-102.0); Mean Platelet Volume 9.3 fl (8.7-11.0); Monocytes Absolute Auto 0.36 K/mm3 (0.10-0.90); Monocytes Percent Auto 6.4 % (2.0-11.0); Neutrophils Absolute Auto 4.4 K/mm3 (1.7-7.2); Neutrophils Percent Auto 77.5 % (50.0-70.0); Platelet Count Result 571 K/mm3 (150-420); Red Blood Count 6.19 M/mm3 (4.70-6.10); Red Cell Distribution Width 14.2 % (11.6-14.4); White Blood Count 5.6 K/mm3 (4.8-10.8)
[2022-11-15 07:18] LABS: Add Urine Microscopic? YES; Bacteria Urine Rare /hpf; Color Urine Dark Yellow (Yellow); RBC Urine None seen /hpf (0-2); Squamous Epithelial Cell Urine Occasional /hpf (Few); WBC Urine None seen /hpf (0-3)
[2022-11-15 07:24] LABS: Creatinine Urine 219.43 mg/dL (40-278); MALB Creatinine Ratio 40.1 mg/g (0-30)
[2022-11-15 08:25] LABS: Alanine Aminotransferase 21 U/L (16-63); Alkaline Phosphatase 90 U/L (46-116); Anion Gap 8 mmol/L (8-16); Aspartate Amino Transferase 17 U/L (15-37); Bilirubin,Total 0.7 mg/dL (0.00-1.00); Blood Urea Nitrogen 23 mg/dL (7-18); Calcium 8.8 mg/dL (8.5-10.1); Carbon Dioxide 30 mmol/L (21-32); Chloride 107 mmol/L (98-108); Cholesterol 177 mg/dL (0-200); Creatine Kinase 70 U/L (39-308); Estimated Glomerular Filt Rate > 60; Ferritin 18 ng/mL (26-388); Free T3 2.96 pg/mL (2.18-3.98); Free T4 Free Thyroxine 1.06 ng/dL (0.76-1.46); Glucose 90 mg/dL (70-99); HDL Direct 60 mg/dL (40-60); Iron 56 ug/dL (65-175); LDL Cholesterol Calculated 88 mg/dL (<130); Osmolality Calculated 303 mOsm/kg (285-295); Potassium 4.7 mmol/L (3.5-5.1); Prostate Specific Antigen 1.3 ng/mL (< OR = 4.0); Sodium 145 mmol/L (136-145); Thyroid Stimulating Hormone 1.69 uIU/mL (0.36-3.74); Triglycerides 145 mg/dL (0-150)
== END 2022-11-15 07:01 | disposition home or self-care (01) ==
LOC: CHSLAB 07:02
PROVIDERS: PCP Internal Medicine; Visit Provider Internal Medicine
DX: D45 Polycythemia vera (principal); E78.2 Mixed hyperlipidemia; I10 Essential (primary) hypertension; E06.3 Autoimmune thyroiditis; Z12.5 Encounter for screening for malignant neoplasm of prostate
CPT/HCPCS: 36415; 80053; 80061; 81001; 82043; 82550; 82728; 83540; 84153; 84439; 84443; 84481; 85025; 85055; G0103

== ENCOUNTER 2022-12-03 06:41 | Outpatient (CLI) | payer OTHER, SELFPAY ==
--- NOTE | ~2022-12-03 | MR_ITS ---
EXAMINATION: MR brain IAC wo/w con DATE: 12/03/2022 08:25 INDICATION: Dizziness. Loss of balance. TECHNIQUE: Magnetic resonance imaging (MRI) of the brain, brainstem, and internal auditory canals was performed without and with 20 mL MultiHance intravenous contrast. COMPARISON: None. FINDINGS: There are scattered areas of nonspecific increased T2-weighted signal intensity in the cere bral white matter. There is no intracranial hemorrhage, acute infarction, or abnormal intracranial ma ss lesion. The ventricles are normal in size. There are likely changes of ocular lens replacement natasha geries. The mastoid air cells are normal. The internal auditory canals and inner and middle ears are normal. There is mild mucosal thickening in the ethmoid sinuses. IMPRESSION: 1. Moderate nonspecific cerebral white matter disease, which likely represents chronic small vessel i schemic disease. Reviewed, dictated and finalized at location E. IMPRESSION: 1. Moderate nonspecific cerebral white matter disease, which likely represents chronic small vessel ischemic disease.
== END 2022-12-03 06:42 | disposition home or self-care (01) ==
LOC: CHSIMG 06:42
PROVIDERS: PCP Internal Medicine; Visit Provider Internal Medicine
DX: R42 Dizziness and giddiness (principal); R90.82 White matter disease, unspecified
CPT/HCPCS: 70553; A9577

== ENCOUNTER 2023-01-17 07:16 | Outpatient (CLI) | payer OTHER, SELFPAY ==
[2023-01-17 08:07] LABS: Anion Gap 8 mmol/L (8-16); Blood Urea Nitrogen 25 mg/dL (7-18); Carbon Dioxide 28 mmol/L (21-32); Chloride 108 mmol/L (98-108); Potassium 4.6 mmol/L (3.5-5.1); Sodium 144 mmol/L (136-145)
[2023-01-17 08:08] LABS: Calcium 8.9 mg/dL (8.5-10.1); Estimated Glomerular Filt Rate > 60; Glucose 85 mg/dL (70-99); Osmolality Calculated 301 mOsm/kg (285-295)
== END 2023-01-17 07:17 | disposition home or self-care (01) ==
LOC: CHSLAB 07:18
PROVIDERS: PCP Internal Medicine; Visit Provider Internal Medicine
DX: I10 Essential (primary) hypertension (principal)
CPT/HCPCS: 36415; 80048

== ENCOUNTER 2023-04-25 08:54 | Outpatient (CLI) | payer OTHER, SELFPAY ==
[2023-04-25 09:08] LABS: Hematocrit 48.1 % (42.0-52.0); Hemoglobin 16.4 g/dL (14.0-18.0); Mean Corpuscular HGB Conc 34.1 g/dl (32-36); Mean Corpuscular Hemoglobin 34.7 pg (26-34); Mean Corpuscular Volume 101.9 fl (80-100); Mean Platelet Volume 9.1 fl (7.4-10.4); Platelet Count Result 487 k/mm3 (150-375); Red Blood Count 4.72 M/mm3 (4.6-6.20); Red Cell Distribution Width 15.3 % (11.5-14.5); White Blood Count 6.4 K/mm3 (4.5-10.0)
[2023-04-25 09:59] LABS: Iron 167 ug/dL (49-181)
[2023-04-25 10:10] LABS: Percent Iron Saturation 60 % (20-50)
== END 2023-04-25 08:55 | disposition home or self-care (01) ==
LOC: ANHLAB 08:57
PROVIDERS: PCP Internal Medicine; Visit Provider Internal Medicine Hematology & Oncology
DX: D64.9 Anemia, unspecified (principal)
CPT/HCPCS: 36415; 82728; 83540; 83550; 85027

== ENCOUNTER 2023-05-17 06:58 | Outpatient (CLI) | payer OTHER, SELFPAY ==
[2023-05-17 07:13] LABS: Basophils Absolute Auto 0.05 K/mm3 (0.00-0.10); Basophils Percent Auto 0.8 % (0.0-1.0); Eosinophils Absolute Auto 0.16 K/mm3 (0.02-0.50); Eosinophils Percent Auto 2.7 % (1.0-6.0); Hemoglobin 16.9 g/dL (12.4-15.3); Immature Granulocyte Absolute 0.03 K/mm3 (0.00-0.00); Immature Granulocyte Percent A 0.5 % (0.0-0.0); Lymphocytes Absolute Auto 0.66 K/mm3 (1.10-4.50); Lymphocytes Percent Auto 11.2 % (18.0-42.0); Mean Corpuscular HGB Conc 33.8 g/dL (32.0-36.0); Mean Corpuscular Hemoglobin 35.5 pg (27.0-31.0); Mean Platelet Volume 9.3 fl (8.7-11.0); Monocytes Absolute Auto 0.31 K/mm3 (0.10-0.90); Monocytes Percent Auto 5.2 % (2.0-11.0); Neutrophils Absolute Auto 4.7 K/mm3 (1.7-7.2); Neutrophils Percent Auto 79.6 % (50.0-70.0); Platelet Count Result 467 K/mm3 (150-420); Red Blood Count 4.76 M/mm3 (4.70-6.10); Red Cell Distribution Width 14.7 % (11.6-14.4); White Blood Count 5.9 K/mm3 (4.8-10.8)
[2023-05-17 07:14] LABS: Appearance Urine Clear (Clear); Bilirubin Urine Negative (Negative); Blood Urine Negative (Negative); Color Urine Yellow (Yellow); Glucose Urine UA Negative (Negative); Ketones Urine Negative (Negative); Leukocyte Esterase Ur Negative LEU/UL (Negative); Nitrate Urine Negative (Negative); Protein Urine Negative (Negative); Urobilinogen Urine 0.2 mg/dL (0.2-1.0)
[2023-05-17 07:37] LABS: Add Urine Microscopic? NO
[2023-05-17 08:01] LABS: Alanine Aminotransferase 18 U/L (16-63); Albumin Level 4.2 g/dL (3.4-5.0); Alkaline Phosphatase 72 U/L (46-116); Anion Gap 4 mmol/L (8-16); Aspartate Amino Transferase 18 U/L (15-37); Bilirubin,Total 0.8 mg/dL (0.00-1.00); Blood Urea Nitrogen 22 mg/dL (7-18); Calcium 9.5 mg/dL (8.5-10.1); Carbon Dioxide 36 mmol/L (21-32); Chloride 102 mmol/L (98-108); Cholesterol 182 mg/dL (0-200); Creatine Kinase 46 U/L (39-308); Estimated Glomerular Filt Rate 57; Ferritin 188 ng/mL (26-388); Free T3 2.84 pg/mL (2.18-3.98); Glucose 96 mg/dL (70-99); HDL Direct 52 mg/dL (40-60); Iron 168 ug/dL (65-175); LDL Cholesterol Calculated 81 mg/dL (<130); Osmolality Calculated 297 mOsm/kg (285-295); Potassium 4.8 mmol/L (3.5-5.1); Sodium 142 mmol/L (136-145); Thyroid Stimulating Hormone 2.91 uIU/mL (0.36-3.74); Total Protein 7.2 g/dL (6.4-8.2); Triglycerides 245 mg/dL (0-150); Uric Acid 7.4 mg/dL (3.5-7.2)
== END 2023-05-17 06:59 | disposition home or self-care (01) ==
LOC: CHSLAB 07:01
PROVIDERS: PCP Internal Medicine; Visit Provider Internal Medicine
DX: E06.3 Autoimmune thyroiditis (principal); E78.2 Mixed hyperlipidemia; N39.0 Urinary tract infection, site not specified; I10 Essential (primary) hypertension; D45 Polycythemia vera; E79.0 Hyperuricemia without signs of inflammatory arthritis and tophaceous disease
CPT/HCPCS: 36415; 80053; 80061; 81003; 82550; 82728; 83540; 84439; 84443; 84481; 84550; 85025

== ENCOUNTER 2023-06-29 07:12 | Outpatient (CLI) | payer OTHER, SELFPAY ==
[2023-06-29 07:31] LABS: Basophils Absolute Auto 0.08 K/mm3 (0.00-0.10); Basophils Percent Auto 1.3 % (0.0-1.0); Eosinophils Percent Auto 3.3 % (1.0-6.0); Hematocrit 49.2 % (37.0-46.0); Hemoglobin 16.1 g/dL (12.4-15.3); Immature Granulocyte Absolute 0.04 K/mm3 (0.00-0.00); Immature Granulocyte Percent A 0.7 % (0.0-0.0); Immature Platelet Fraction Pct 2.8 % (1.0-7.0); Lymphocytes Absolute Auto 0.68 K/mm3 (1.10-4.50); Lymphocytes Percent Auto 11.2 % (18.0-42.0); Mean Corpuscular HGB Conc 32.7 g/dL (32.0-36.0); Mean Corpuscular Hemoglobin 34.2 pg (27.0-31.0); Mean Corpuscular Volume 104.5 fL (78.0-102.0); Mean Platelet Volume 9.5 fl (8.7-11.0); Monocytes Absolute Auto 0.39 K/mm3 (0.10-0.90); Monocytes Percent Auto 6.4 % (2.0-11.0); Neutrophils Absolute Auto 4.7 K/mm3 (1.7-7.2); Neutrophils Percent Auto 77.1 % (50.0-70.0); Platelet Count Result 615 K/mm3 (150-420); Red Blood Count 4.71 M/mm3 (4.70-6.10); Red Cell Distribution Width 14.4 % (11.6-14.4); White Blood Count 6.1 K/mm3 (4.8-10.8)
[2023-06-29 08:07] LABS: Ferritin 129 ng/mL (26-388); Iron 140 ug/dL (65-175); Percent Iron Saturation 50 % (12-57); Uric Acid 6.5 mg/dL (3.5-7.2)
== END 2023-06-29 07:13 | disposition home or self-care (01) ==
LOC: CHSLAB 07:14
PROVIDERS: PCP Internal Medicine; Visit Provider Internal Medicine
DX: D45 Polycythemia vera (principal); E79.0 Hyperuricemia without signs of inflammatory arthritis and tophaceous disease
CPT/HCPCS: 36415; 82728; 83540; 83550; 84550; 85025; 85055

== ENCOUNTER 2023-10-31 07:14 | Outpatient (CLI) | payer OTHER, SELFPAY ==
[2023-10-31 07:43] LABS: Appearance Urine Clear (Clear); Basophils Absolute Auto 0.06 K/mm3 (0.00-0.10); Bilirubin Urine Negative (Negative); Blood Urine Negative (Negative); Color Urine Dark Yellow (Yellow); Eosinophils Absolute Auto 0.18 K/mm3 (0.02-0.50); Eosinophils Percent Auto 3.1 % (1.0-6.0); Glucose Urine UA Negative (Negative); Hematocrit 51.5 % (37.0-46.0); Immature Granulocyte Absolute 0.02 K/mm3 (0.00-0.00); Immature Granulocyte Percent A 0.3 % (0.0-0.0); Immature Platelet Fraction Pct 2.7 % (1.0-7.0); Ketones Urine Negative (Negative); Leukocyte Esterase Ur Negative (Negative); Lymphocytes Absolute Auto 0.59 K/mm3 (1.10-4.50); Lymphocytes Percent Auto 10.3 % (18.0-42.0); Mean Corpuscular Hemoglobin 33.5 pg (27.0-31.0); Mean Corpuscular Volume 101.6 fL (78.0-102.0); Mean Platelet Volume 9.3 fl (8.7-11.0); Monocytes Absolute Auto 0.33 K/mm3 (0.10-0.90); Monocytes Percent Auto 5.8 % (2.0-11.0); Neutrophils Absolute Auto 4.55 K/mm3 (1.70-7.20); Neutrophils Percent Auto 79.5 % (50.0-70.0); Nitrate Urine Negative (Negative); Platelet Count Result 598 K/mm3 (150-420); Protein Urine Negative (Negative); Red Blood Count 5.07 M/mm3 (4.70-6.10); Red Cell Distribution Width 14.2 % (11.6-14.4); Urobilinogen Urine 0.2 mg/dL (0.2-1.0); White Blood Count 5.7 K/mm3 (4.8-10.8); pH Urine 6.5 (5.0-8.0)
[2023-10-31 07:52] LABS: Add Urine Microscopic? NO
[2023-10-31 08:34] LABS: Alanine Aminotransferase 26 U/L (16-63); Albumin Level 3.9 g/dL (3.4-5.0); Alkaline Phosphatase 73 U/L (46-116); Anion Gap 7 mmol/L (4-12); Aspartate Amino Transferase 26 U/L (15-37); Bilirubin,Total 0.8 mg/dL (0.00-1.00); Blood Urea Nitrogen 22 mg/dL (7-18); Calcium 9.1 mg/dL (8.5-10.1); Carbon Dioxide 32 mmol/L (21-32); Chloride 102 mmol/L (98-108); Cholesterol 166 mg/dL (0-200); Creatine Kinase 72 U/L (39-308); Estimated Glomerular Filt Rate 57; Ferritin 55 ng/mL (26-388); Free T4 Free Thyroxine 0.95 ng/dL (0.76-1.46); Glucose 86 mg/dL (70-99); HDL Direct 63 mg/dL (40-60); Iron 119 ug/dL (65-175); LDL Cholesterol Calculated 77 mg/dL (<130); Osmolality Calculated 294 mOsm/kg (285-295); Potassium 4.9 mmol/L (3.5-5.1); Sodium 141 mmol/L (136-145); Thyroid Stimulating Hormone 3.24 uIU/mL (0.36-3.74); Total Protein 6.9 g/dL (6.4-8.2); Triglycerides 128 mg/dL (0-150)
[2023-10-31 09:15] LABS: Vitamin B12 832 pg/mL (193-986)
[2023-11-01 12:58] LABS: Red Blood Cell Folate 449 ng/mL RBC (>280)
== END 2023-10-31 07:15 | disposition home or self-care (01) ==
LOC: CHSLAB 07:16
PROVIDERS: PCP Internal Medicine; Visit Provider Internal Medicine
DX: E78.2 Mixed hyperlipidemia (principal); E06.3 Autoimmune thyroiditis; I10 Essential (primary) hypertension; E79.0 Hyperuricemia without signs of inflammatory arthritis and tophaceous disease; G62.9 Polyneuropathy, unspecified
CPT/HCPCS: 36415; 80053; 80061; 81003; 82550; 82607; 82728; 82747; 83540; 84439; 84443; 84550; 85025; 85055

== ENCOUNTER 2024-04-03 09:28 | Outpatient (CLI) | payer OTHER, SELFPAY ==
[2024-04-03 09:42] LABS: Hematocrit 53.6 % (42.0-52.0); Hemoglobin 17.3 g/dL (14.0-18.0); Mean Corpuscular HGB Conc 32.3 g/dl (32-36); Mean Corpuscular Hemoglobin 28.8 pg (26-34); Mean Corpuscular Volume 89.2 fl (80-100); Mean Platelet Volume 9.3 fl (7.4-10.4); Platelet Count Result 465 k/mm3 (150-375); Red Blood Count 6.01 M/mm3 (4.6-6.20); Red Cell Distribution Width 20.3 % (11.5-14.5); White Blood Count 6.5 K/mm3 (4.5-10.0)
[2024-04-03 12:14] LABS: Iron 84 ug/dL (49-181)
[2024-04-03 12:25] LABS: Percent Iron Saturation 24 % (20-50)
== END 2024-04-03 09:29 | disposition home or self-care (01) ==
LOC: ANHLAB 09:29
PROVIDERS: PCP Internal Medicine; Visit Provider Internal Medicine Hematology & Oncology
DX: D45 Polycythemia vera (principal)
CPT/HCPCS: 36415; 82728; 83540; 83550; 85027

== ENCOUNTER 2024-07-08 07:09 | Outpatient (CLI) | payer OTHER, SELFPAY ==
--- OUTSIDE RECORDS SUMMARY | 2024-07-08 07:13 | XMS_ITS ---
Author Organization Unknown Medications Medication Instructions Effective Dates (start - stop) Status pravastatin sodium 10 MG Oral Tablet 202300:00:00Z - Completed tramadol hydrochloride 50 MG Oral Tablet - Completed hydroxyurea 500 MG Oral Capsule 2022-11-21 1T00:00:00Z - Completed hydroxyurea 500 MG Oral Capsule 2023-05-23 3T00:00:00Z - Completed allopurinol 100 MG Oral Tablet 2023-07-21 T00:00:00Z - Completed pravastatin sodium 10 MG Oral Tablet 2022T00:00:00Z - Completed allopurinol 100 MG Oral Tablet 2023-09-18 T00:00:00Z - Completed levothyroxine sodium 0.075 M G Oral Tablet - Completed pravastatin sodium 10 MG Oral Tablet 202300:00:00Z - Completed hydrochlorothiazide 12.5 MG Oral Tablet - Completed losartan potassium 25 MG Oral Tablet 202300:00:00Z - Completed - - Compl eted allopurinol 100 MG Oral Tablet 2023-08-21 T00:00:00Z - Completed losartan potassium 25 MG Oral Tablet 2022T00:00:00Z - Completed levothyroxine sodium 0.075 M G Oral Tablet - Completed allopurinol 100 MG Oral Tablet 2023-05-30 T00:00:00Z - Completed hydrochlorothiazide 12.5 MG Oral Tablet - Completed levothyroxine sodium 0.075 M G Oral Tablet - Completed losartan potassium 25 MG Oral Tablet 2024 -02-28T00:00:00Z - Completed allopurinol 100 MG Oral Tablet 2023-11-20 T00:00:00Z - Completed losartan potassium 25 MG Oral Tablet 2023T:00:00Z - Completed hydroxyurea 500 MG Oral Capsule 2023-08-22 9T00:00:00Z - Completed losartan potassium 25 MG Oral Tablet 2023T00:00:00Z - Completed losartan potassium 25 MG Oral Tablet 2023T00:00:00Z - Completed - - Compl eted levothyroxine sodium 0.075 M G Oral Tablet - Completed hydrochlorothiazide 12.5 MG Oral Tablet - Completed hydroxyurea 500 MG Oral Capsule 2023-02-21 0T00:00:00Z - Completed hydroxyurea 500 MG Oral Capsule 2023-11-20 5T00:00:00Z - Completed losartan potassium 25 MG Oral Tablet 2022T00:00:00Z - Completed tramadol hydrochloride 50 MG Oral Tablet - Completed losartan potassium 25 MG Oral Tablet 2023T00:00:00Z - Completed allopurinol 100 MG Oral Tablet 2023-10-19 T00:00:00Z - Completed - - Compl eted hydrochlorothiazide 12.5 MG Oral Tablet - Completed hydrochlorothiazide 12.5 MG Oral Tablet - Completed Patient Care team information Name Category Status Period Participants - - Proposed period not known -
--- OUTSIDE RECORDS SUMMARY | 2024-07-08 07:13 | XMS_ITS | Clinical Summary ---
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 Name Role Phone Unavailable Primary Care Provider Unavailabl e Social History Tobacco Use Types Packs/Day Years Used Date Smoking Tobacco: Never Assessed Sex and Gender Information Value Date Recorded Sex Assigned at Not on file Legal Sex Male 8:37 PM CDT Gender Identity Not on file Sexual Orientation Not on file Plan of Treatment Health Maintenance Due Date Last Done Comments Hepatitis C 1963 DTaP, Tdap and Td Vaccines ( 1 - Tdap) 1964 Zoster Vaccines (1 of 2) 1995 Pneumococcal Vaccine: 65+ Ye ars (1 of 1 - PCV) 2010 RSV Immunization or 60+ Years (1 - 1-dose 75+ series) 2020 COVID-19 Vaccine ( - 2023-2 5 season) 2024 Influenza Adult (#1) 2024 Meningococcal B Vaccine Aged Out No l onger eligible based on patient's age to complete this topic Meningococcal Vaccine Aged Out No rtan pam eligible based on patient's age to complete this topic RSV Immunizations Under 20 Months Aged Out No longer eligible based on patient's age to complete this topic
[2024-07-08 07:23] LABS: Hematocrit 53.8 % (37.0-46.0); Hemoglobin 17.3 g/dL (12.4-15.3); Mean Corpuscular HGB Conc 32.2 g/dL (32-36); Mean Corpuscular Hemoglobin 30.3 pg (27.0-31.0); Mean Corpuscular Volume 94.2 fL (78.0-102.0); Mean Platelet Volume 9.1 fl (8.7-11.0); Platelet Count Result 386 K/mm3 (150-420); Red Blood Count 5.71 M/mm3 (4.70-6.10); Red Cell Distribution Width 14.7 % (11.6-14.4); White Blood Count 5.5 K/mm3 (4.8-10.8)
[2024-07-08 08:10] LABS: Add Urine Microscopic? YES; Appearance Urine Clear (Clear); Bilirubin Urine Negative (Negative); Blood Urine Negative (Negative); Color Urine Yellow (Yellow); Glucose Urine UA Negative (Negative); Ketones Urine Negative (Negative); Leukocyte Esterase Ur Negative (Negative); Nitrate Urine Negative (Negative); Protein Urine Trace (Negative); Specific Grav Ur 1.015 (1.010-1.020); Urobilinogen Urine 0.2 mg/dL (0.2-1.0)
[2024-07-08 08:15] LABS: RBC Urine None seen /hpf (0-2); WBC Urine None seen /hpf (0-3)
[2024-07-08 08:16] LABS: Bacteria Urine Trace /hpf; Squamous Epithelial Cell Urine Rare /hpf (Few)
[2024-07-08 08:23] LABS: Alanine Aminotransferase 24 U/L (16-63); Alkaline Phosphatase 87 U/L (46-116); Anion Gap 10 mmol/L (4-12); Aspartate Amino Transferase 21 U/L (15-37); Blood Urea Nitrogen 18 mg/dL (7-18); Calcium 9.2 mg/dL (8.5-10.1); Carbon Dioxide 30 mmol/L (21-32); Chloride 105 mmol/L (98-108); Cholesterol 178 mg/dL (0-200); Creatine Kinase 57 U/L (39-308); Estimated Glomerular Filt Rate 57; Free T4 Free Thyroxine 0.96 ng/dL (0.76-1.46); Glucose 90 mg/dL (70-99); HDL Direct 55 mg/dL (40-60); LDL Cholesterol Calculated 85 mg/dL (<130); Osmolality Calculated 301 mOsm/kg (285-295); Potassium 4.8 mmol/L (3.5-5.1); Sodium 145 mmol/L (136-145); Thyroid Stimulating Hormone 3.51 uIU/mL (0.36-3.74); Total Protein 6.9 g/dL (6.4-8.2); Triglycerides 192 mg/dL (0-150); Uric Acid 5.7 mg/dL (3.5-7.2); Vitamin B12 1008 pg/mL (193-986)
== END 2024-07-08 07:10 | disposition home or self-care (01) ==
LOC: CHSLAB 07:11
PROVIDERS: PCP Internal Medicine; Visit Provider Internal Medicine
DX: E78.2 Mixed hyperlipidemia (principal); E06.3 Autoimmune thyroiditis; E79.0 Hyperuricemia without signs of inflammatory arthritis and tophaceous disease; E53.8 Deficiency of other specified B group vitamins
CPT/HCPCS: 36415; 80053; 80061; 81001; 82550; 82607; 84439; 84443; 84481; 84550; 85027

== ENCOUNTER 2025-01-07 09:09 | Outpatient (CLI) | payer OTHER, SELFPAY ==
[2025-01-07 09:23] LABS: Hematocrit 52.8 % (42.0-52.0); Hemoglobin 17.6 g/dL (14.0-18.0); Immature Granulocyte Percent A 0.3 % (0-0.5); Lymphocytes Absolute Auto 0.60 K/mm3 (0.9-3.2); Mean Corpuscular HGB Conc 33.3 g/dl (32-36); Mean Corpuscular Hemoglobin 32.2 pg (26-34); Mean Corpuscular Volume 96.7 fl (80-100); Nucleated Red Blood Cells Absolute Auto 0.000 K/mm3 (0.0-0.012); Nucleated Red Blood Cells Perc 0.0 % (0.0-0.2); Platelet Count Result 448 k/mm3 (150-375); Red Blood Count 5.46 M/mm3 (4.6-6.20); White Blood Count 5.9 K/mm3 (4.5-10.0)
[2025-01-07 10:59] LABS: Anion Gap 9 mmol/L (4-12); Blood Urea Nitrogen 27 mg/dL (9-20); Calcium 9.4 mg/dL (8.4-10.2); Carbon Dioxide 27 mmol/L (22-30); Chloride 102 mmol/L (98-107); Estimated Glomerular Filt Rate > 60; Glucose 87 mg/dL (65-110); Iron 92 ug/dL (49-181); Potassium 4.5 mmol/L (3.4-5.0); Sodium 138 mmol/L (137-145)
[2025-01-07 11:11] LABS: Percent Iron Saturation 23 % (20-50)
[2025-01-07 11:40] LABS: Ferritin 11.40 ng/mL (11.1-264)
== END 2025-01-07 09:10 | disposition home or self-care (01) ==
LOC: ANHLAB 09:10
PROVIDERS: PCP Internal Medicine; Visit Provider Internal Medicine Hematology & Oncology
DX: D64.9 Anemia, unspecified (principal)
CPT/HCPCS: 36415; 80048; 82728; 83540; 83550; 85025

== ENCOUNTER 2025-01-16 07:07 | Outpatient (CLI) | payer OTHER, SELFPAY ==
--- OUTSIDE RECORDS SUMMARY | 2025-01-16 07:10 | XMS_ITS | Clinical Summary ---
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
--- OUTSIDE RECORDS SUMMARY | 2025-01-16 07:10 | XMS_ITS | Clinical Summary ---
Author Organization [facility] Obinna sanchez Kam[place] Address [address] [place] [address] Care Team Providers Care Nursing Home Aide Name Role Phone Flako Ibarra MD Primary Care Provider + Allergies No known active allergies Medications pravastatin (PRAVACHOL) 10 mg tablet Take 10 mg by mouth daily with supper. Active losartan (COZAAR) 25 mg tablet Take 40 mg by mouth daily. Active traMADol (ULTRAM) 50 mg tablet Take 100 mg by mouth every 6 hours as needed for Pain. Active multivitamin (DAILY-MAYCOL) tablet Take 1 Tablet by mouth daily. Active aspirin (TOBY) 325 mg tablet Take 81 mg by mouth every 12 hours. Active omega-3 fatty acids-fish oil 300-1,000 mg Capsule Take 1 Capsule by mouth daily. Active acetaminophen (TYLENOL ARTHRITIS) 650 mg Extended Release tablet Take 650 mg by mouth every 6 hours as needed for Pain. Active cetirizine (ZyrTEC) 1 mg/mL Solution Take 1 mg by mouth daily. Active naloxone (NARCAN) 4 mg/spray [address], Non-Aerosol Administer 1 spray (4 mg) in one nostril one time. May repeat in alternating nostrils every 2-3 min until responsive or EMS arrives. 2 Each 3 0 Active levothyroxine 50 mcg tablet Take 25 mcg by mouth daily. 1 Active multivitamins-m inerals-lutein (CENTRUM SILVER) Tablet Take 1 Tablet by mouth daily. Active LAXATIVE, BISACODYL, ORAL Take 100 mg by mouth 2 times daily. Active allopurinoL (ZYLOPRIM) 100 mg tablet Take 100 mg by mouth daily. Active hydroxyurea (HYDREA) 500 mg capsuleIndicati ons:Polycythemi a vera ([facility]) Take one tablet by mouth daily. 30 Capsule 3 Active Active Problems Problem Noted Date Diagnosed Date Microcytic anemia 09/29/2021 Essential thrombocythemia 05/27/2021 Polycythemia vera 06/26/2019 Encounters Date Type Department Care Team Description 01/09/2025 Orders Only [facility] Oncology and Hematology [facility] [address] [place] [address] Jonathon Love MD 01/07/2025 External Device Data [facility]STRACTION Provider, Abstract 01/07/2025 External Device Data [facility] Provider, Abstract 12/25/2024 External Device Data [facility] Provider, Abstract 12/04/2024 External Device Data [facility] Provider, Abstract 12/04/2024 External Device Data [facility]STRACTION Provider, Abstract 12/04/2024 External Device Data [facility]STRACTION Provider, Abstract 12/03/2024 External Device Data [facility]STRACTION Provider, Abstract 11/28/2024 Refill [facility] Oncology and Hemat[facility] [address] [place] [address] Jonathon Love MD Polycythemia vera ([facility]) 11/05/2024 External Device Data [facility] ABSTRACTION Provider, Abstract 10/25/2024 Orders Only [facility] Oncology [facility] Hemat[facility] [address] [place] [address] Jonathon Love MD 10/18/2024 12:45 PM CDT Office Visit [facility] Oncology and [facility] [address] [place] [address] Jonathon Love MD Chronic anemia (Primary Dx) from Last 3 Months Family History Medical History Relation Name Comments Cancer Father Heart Disease Father Cancer Mother Diabetes Sister Relation Name Status Comments Father Mother Sister Alive Social History Tobacco Use Types Packs/Day Years Used Date Smoking Tobacco: Former Cigarettes Q uit: 06/26/1978 Smokeless Tobacco: Never Tobacco Cessation:Counseling Given: Not Answered Alcohol Use Standard Drinks/Week Comments Yes 0 (1 standard drink = 0.6 oz pur e alcohol) Sex and Gender Information Value Date Recorded Sex Assigned at Not on file Legal Sex Male 2:41 PM [employer] Gender Identity Not on file Sexual Orientation Not on file Last Filed Vital Signs Vital Sign Reading Time Taken Comments Blood Pressure 140/89 10/18/2024 12:29 PM CDT Pulse 69 10/18/2024 12:27 PM CDT Temperature 36.2 C (97.2 F) 10/18/2024 12:27 PM CDT Respiratory Rate 15 10/18/2024 12:2 7 PM CDT Oxygen Saturation 94% 10/18/2024 12: 27 PM CDT Inhaled Oxygen Concentration - - Weight 97.4 kg (214 lb 12.8 oz) 025 12:27 PM CDT Height 188 cm (6' 2) 11/11/2022 10:09 AM CDT Body Mass Index 27.58 11/11/2022 10:09 AM CDT Plan of Treatment Upcoming Encounters Date Type Department Care Team (Late st Contact Info) Description 01/17/2025 12:15 PM CDT Office Visit [facility] Oncology and Hematology - [place] [address] [place] [address] [facility] [address] [place] [address] Jonathon Love MD [address] [facility] [address] [place] [address] Health Maintenance Due Date Last Done Comments DTAP/TDAP/TD VACCINES (1 - Tdap) 1964 PNEUMOCOCCAL VACCINE 50+ YEARS (1 of 1 - PCV) 03/12/19 95 ZOSTER VACCINE (1 of 2) 1995 RSV VACCINE (60+ or ) (1 - 1-dose 75+ series) 2020 INFLUENZA VACCINE (#1) 2024 Procedures Procedure Name Priority Date/Time Associated Diagnosis Comments IRON, TIBC, AND PERCENT SATURATION Routine 01/07/2025 9:40 AM CDT from Last 3 Months Results * IRON, TIBC, AND PERCENT SATURATION (01/07/2025 9:40 AM CDT) Blood us Jonathon Love MD CHEMISTRY ORDERABLES Final Resu lt from Last 3 Months Insurance [employer] CHOICE POS II Care Teams Nursing Home Aide Relationship Specialty Start Date End Date Flako Ibarra MD [address] [place] [address] PCP - General Internal Medicine 05/16/19
[2025-01-16 07:19] LABS: Hematocrit 51.8 % (37.0-46.0); Hemoglobin 16.9 g/dL (12.4-15.3); Mean Corpuscular HGB Conc 32.6 g/dL (32-36); Mean Corpuscular Hemoglobin 31.8 pg (27.0-31.0); Mean Corpuscular Volume 97.6 fL (78.0-102.0); Platelet Count Result 419 K/mm3 (150-420); Red Blood Count 5.31 M/mm3 (4.70-6.10); White Blood Count 4.9 K/mm3 (4.8-10.8)
[2025-01-16 07:21] LABS: Add Urine Microscopic? YES; Appearance Urine Clear (Clear); Glucose Urine UA Negative (Negative); Leukocyte Esterase Ur Negative (Negative); Nitrate Urine Negative (Negative); Specific Grav Ur 1.015 (1.010-1.020)
[2025-01-16 07:53] LABS: Alanine Aminotransferase 19 U/L (6-50); Albumin Level 4.5 g/dL (3.5-5.1); Alkaline Phosphatase 76 U/L (38-126); Anion Gap 10 mmol/L (4-12); Aspartate Amino Transferase 33 U/L (17-59); Bilirubin,Total 0.9 mg/dL (0.2-1.3); Blood Urea Nitrogen 28 mg/dL (9-20); Calcium 9.5 mg/dL (8.4-10.2); Carbon Dioxide 27 mmol/L (22-30); Chloride 106 mmol/L (98-107); Cholesterol 172 mg/dL (0-200); Estimated Glomerular Filt Rate > 60; Glucose 88 mg/dL (65-110); HDL Direct 56 mg/dL; Iron 74 ug/dL (49-181); Osmolality Calculated 300 mOsm/kg (285-295); Potassium 4.8 mmol/L (3.4-5.0); Sodium 143 mmol/L (137-145); Total Protein 6.7 g/dL (6.3-8.2); Triglycerides 139 mg/dL (<150); Uric Acid 6.1 mg/dL (3.5-8.5)
[2025-01-16 08:09] LABS: Free T4 Free Thyroxine 2.10 ng/dL (0.78-2.19)
[2025-01-16 08:23] LABS: Thyroid Stimulating Hormone 2.310 uIU/mL (0.465-4.680)
[2025-01-16 08:27] LABS: Ferritin 11.10 ng/mL (11.1-264)
== END 2025-01-16 07:08 | disposition home or self-care (01) ==
LOC: CHSLAB 07:08
PROVIDERS: PCP Internal Medicine; Visit Provider Internal Medicine
DX: D45 Polycythemia vera (principal); E06.3 Autoimmune thyroiditis; I10 Essential (primary) hypertension; E78.00 Pure hypercholesterolemia, unspecified
CPT/HCPCS: 36415; 80053; 80061; 81001; 82728; 83540; 84439; 84443; 84550; 85027